=== PATIENT | female | born 1960 | race Caucasian/White ===

== ENCOUNTER → 2020-04-14 14:34 | Outpatient (CLI) | payer BC, SELFPAY ==
--- NOTE | 2020-04-14 14:41 | XR_ITS ---
PROCEDURE: XR ANKLE RT MIN 3V CLINICAL INDICATION: RT ANKLE PAIN COMPARISON: No exams were available for comparison FINDINGS: There is a nondisplaced longitudinal fracture through the distal aspect of the tibia medially. The fracture extends to the base the medial malleolar region. The ankle mortise does not appear widened. There are mild osteoarthritic changes of the ankle. There are mild degenerative changes in the midfoot. IMPRESSION: Nondisplaced longitudinal fracture at the base of the medial malleolus Dictated by: Denis Huizar MD 04/14/2020 15:03 Denis Huizar MD in [place] 04/14/2020 15:03
== END ==
PROVIDERS: PCP Family Medicine; Visit Provider Nurse Practitioner
DX: M25.571 Pain in right ankle and joints of right foot (principal); R60.9 Edema, unspecified
CPT/HCPCS: 73610

== ENCOUNTER → 2020-09-01 13:52 | Outpatient (CLI) | payer BC, SELFPAY ==
--- NOTE | 2020-09-01 14:00 | XR_ITS ---
PROCEDURE: XR LUMBAR SPINE MIN 4V CLINICAL INDICATION: LUMBAGO W/SCIATICA RT SIDE COMPARISON: No exams were available for comparison FINDINGS: Moderate scoliosis convex to the left. Moderate diffuse degenerative changes of the lumbar spine. Slight anterolisthesis of L4 on L5. SI joints are normal. Moderate bilateral facet spondylosis of L4-5 and L5-S1. No acute fracture. IMPRESSION: Moderate diffuse degenerative changes with slight anterolisthesis of L4 on L5 and moderate bilateral facet spondylosis of L4-5 and L5-S1. Some degenerative change of the lower thoracic spine noted. Dictated by: Barak Finn MD 09/01/2020 14:28 Barak Finn MD in [place] 09/01/2020 14:28
== END ==
PROVIDERS: PCP Nurse Practitioner Family; Visit Provider Nurse Practitioner Family
DX: M54.42 Lumbago with sciatica, left side (principal); M54.41 Lumbago with sciatica, right side
CPT/HCPCS: 72110

== ENCOUNTER → 2020-09-13 09:05 | Outpatient (CLI) | payer BC, SELFPAY ==
--- NOTE | 2020-09-13 09:18 | XR_ITS ---
PROCEDURE: XR DEXA AXIAL SKELETON CLINICAL HISTORY: SCREENING FOR OSTEOPOROSIS,H/O RT ANKLE FX COMPARISON: No exams were available for comparison FINDINGS: The right hip BMD is 0.620 with a T-score of -2.1. The left hip BMD is 0.663 with a T-score of -1.7. The lumbar spine BMD is 0.840 with a T-score of -1.9. IMPRESSION: This patient is considered osteopenic according to the World Health Organization criteria. Bone density is between 10 and 25 percent below young normal. Fracture risk is moderate. Treatment is advised. Based on these results a follow-up exam is recommended in 2 year. Dictated by: Denis Huizar MD 09/13/2020 19:28 Denis Huizar MD in [place] 09/14/2020 07:28
== END ==
PROVIDERS: PCP Nurse Practitioner Family; Visit Provider Nurse Practitioner Family
DX: Z13.820 Encounter for screening for osteoporosis (principal); Z87.81 Personal history of (healed) traumatic fracture
CPT/HCPCS: 77080

== ENCOUNTER 2020-11-05 15:59 | Emergency (ER) | payer BC, SELFPAY ==
[2020-11-05 16:50] VITALS: BP 148/79; PULSE 76; RESP 21; TEMP 37.7; O2SAT 98; BMI 42.5
[2020-11-05 17:17] VITALS: BP 148/79; PULSE 76; RESP 21; TEMP 37.7; O2SAT 98
--- NOTE | 2020-11-05 17:18 | HMH.EDUTC ---
[facility] [place]ression: Encounter for laboratory testing for COVID-19 virus Disposition: Home, Self-Care Condition on Discharge: Good Instructions: DI for COVID-19 (Suspected or Confirmed ), Coronavirus Disease 2019, Preventing the Spread of Coronavirus Discharge Instructions Additional Instructions: *Monitor Temp, Over the counter Motrin or Tylenol as directed/as needed Tylenol every 4 hours and Motrin every 6 hours (as long as your family doctor has told you that you can take it) for fever or pain. and straight to ER if unable to lower temp less than 101.0 after medication given *Warm fluids like tea with honey may help to soothe the throat and open up your sinuses *Sleep elevated *Humidifier/Vaporizer *Flonase 2 sprays in each nostril daily but be aware that it may take 2-3 days before you notice improvement Follow up IMMEDIATELY for new or worsening symptoms or no Noticeable improvement over the next 48-72 hours. 911 for difficulty breathing or swallowing You were tested for today for COVID19 your test result should be back in the next 24-48 hours, you may call to the [facility] to see if your test results are back in the next 48 hours [phone] [facility] hours are 9am-9pm You was given a handout with instructions for Self Quarantine and Self isolation for while you wait on test results and what to do if they are positive If you are positive the Health Dept will be contacting you also Make sure to take your Vitamins Vit. C Vit D and Zinc if you can take them Referrals: Akil Cabrera MD [Primary Care Provider] - As needed Forms: Work/School Release Time of Disposition: 17:21 Medical Decision Making - Charles Inquiry Pt receiving controlled substance: No Charles was queried for this patient: No Vital Signs: 11/05/20 16:50 11/05/20 17:17 Temperature 99.9 F H 99.9 F H Temperature Source Oral Pulse Rate 76 Pulse Rate [Right Brachial] 76 Respiratory Rate 21 21 Blood Pressure 148/79 H Blood Pressure [Right Arm] 148/79 H Blood Pressure Mean [Right Arm] 102 Blood Pressure Source [Right Arm] Automatic Cuff Blood Pressure Position [Right Arm] Sitting 02 Sat by Pulse Oximetry 98 Oxygen Delivery Method Room Air Orders (Tests/Meds): ORDERS Category Date Time Status Covid-19 Nasal PCR ([facility]) Routine Lab 11/05/20 16:51 [place] [facility] [place] - General Stated complaint: cough,congestion Time Seen by Provider: 11/05/20 17:18 Mode of Arrival: Ambulatory Source of Information: Patient Limitations: No Limitations Description of Symptoms (Recalled from Triage Doc. by RN): PATIENT C/O COUGH, FEVER, CONGESTION, AND FATIGUE X 2 DAYS. REQUESTING COVID TEST HEENT Symptoms (Recalled from RN notes): Yes Resp Symptoms (Recalled from RN notes): Yes Skin Symptoms (Recalled from RN notes): No MS Symptoms (Recalled from RN notes): No Functional Status (Recalled from RN notes): WNL - History of Present Illness Provider Complaint: Patient state that she has had cough, nasal congestion and feeling achy and tired for 2 days State that she took an at home COVID test and it showed positive so she wanted to get tested for COVID - Related Data Home Medications Medication Instructions Recorded Confirmed No Known Home Medications 04/02/19 04/02/19 Allergies Allergy/AdvReac Type Severity Reaction Status Date / Time No Known Allergies Allergy Verified 04/01/19 10:36 - Worker's Comp Is this a Worker's Comp case?: No [facility] History - Hepatitis A Screen Drug use history?: No High risk sexual behaviors?: No History of sexually transmitted infection?: No Currently employed?: No Childcare worker?: No Do you have indoor plumbing?: Yes Do you have electricity?: Yes Attestation statement:: This patient has been screened for Hepatitis A risk factors. I have reviewed the patient's past medical history: Yes Medical History: Denies:: Cancer, Diabetes Mellitus Type 1, Diabetes Mellitus Type 2, Internal
--- NOTE | 2020-11-06 11:54 | PC.NURSE ---
PT NOTIFIED OF POSITIVE COVID TEST RESULTS
== END 2020-11-05 17:31 | disposition home or self-care (01) ==
PROVIDERS: Emergency Provider Nurse Practitioner; PCP Family Medicine
DX: U07.1 COVID-19 (principal)
CPT/HCPCS: 99202; G0463; U0003

== ENCOUNTER 2022-02-04 15:18 | Emergency (ER) | payer BC, SELFPAY ==
--- NOTE | 2022-02-04 16:54 | EXP.UTC ---
Discharge Plan Disposition Patient Disposition: Home, Self-Care Condition: Good Prescriptions Prescriptions: New azithromycin [Zithromax] 250 mg tablet 250 mg PO UD DOSE PK Qty: 6 0RF Rx Instructions: Take two (2) tablets today, then one (1) tablet days #2 thru #5 benzonatate [benzonatate] 100 mg capsule 100 mg PO TIDP PRN (Reason: Cough) Qty: 30 0RF Paxlovid (EUA) 300 mg (150 mg x 2)-100 mg tablet See Rx Instructions .ROUTE .COMPLEX Qty: 30 0RF Rx Instructions: take TWO 150 mg tablets of nirmatrelvir with ONE 100 mg tablet of ritonavir twice daily for 5 days No Action benzonatate 100 MG capsule 100 mg PO TID PRN (Reason: Cough) Qty: 15 0RF Referrals Follow up/Referrals: Akil Cabrera MD [Primary Care Provider] - See instructions Activity Restrictions/Add. Instructions Additional Instructions/Restrictions: Drink plenty of fluids. Take tylenol or ibuprofen for pain or fever. Take the medications as directed. Follow up with your regular doctor. GO TO THE ER FOR ANY WORSENING SYMPTOMS Quarantine until you know the results of your covid-19 test. Notify your school or workplace of your results and follow their instructions regarding return to work/school. Clinical Impressions Clinical Impression: COVID-19, Acute viral syndrome Stand Alone Forms Stand Alone Forms: Work/School Release Instructions Patient Instructions: Coronavirus Disease 2019, Preventing the Spread of Coronavirus Discharge Instructions Discharge ED Provider: Barak Mckeon [facility] General Stated complaint: covid test, cough, congestion Time Seen by Provider: 02/04/22 16:54 History of Present Illness Provider Complaint: She states that for the past 2 days she has felt bad, had a dry cough, and body aches. She has been exposed to covid-19. She denies any shortness of breath. Related Data Previous Rx's Medication Instructions Recorded benzonatate 100 mg capsule 100 mg PO TID PRN Cough #15 caps 11/05/20 azithromycin 250 mg tablet 250 mg PO UD DOSE PK #6 tabs 02/04/22 (Zithromax) benzonatate 100 mg capsule 100 mg PO TIDP PRN Cough #30 caps 02/04/22 nirmatrelvir 300 mg (150 mg See Rx Instructions PO .COMPLEX 02/04/22 x2)-ritonavir 100 mg tablet,dose #30 tabs pack(EUA) (Paxlovid) Allergies Allergy/AdvReac Type Severity Reaction Status Date / Time No Known Allergies Allergy Verified 02/04/22 17:18 PFSH PFS Social History Smoking Status: Never smoker alcohol intake: never substance use type: other current occupational status: employed Travel in the last 8 weeks: Outside the [facility] household members: family housing: house current occupation: [email or web address] current occupational exposures/hazards: No caffeine: Yes ROS Obtained: Yes All systems reviewed & no additional complaints except as documented Constitutional Constitutional: Reports chills and Reports fever(s) Eyes Eyes: Denies eye discharge ENT Ears, Nose, Mouth, and Throat: Reports as per HPI Cardiovascular Cardiovascular: Denies chest pain Respiratory Respiratory: Denies chest congestion and Reports cough Gastrointestinal Gastrointestingal: Reports nausea; Denies abdominal pain, constipation, cramping, diarrhea or vomiting Musculoskeletal Musculoskeletal: Denies arthralgias Integumentary/Breasts Skin/Breast: Denies rash Neurologic Neurologic: Denies paresthesias Physical Exam General General appearance: alert and in no apparent distress Head Head exam: atraumatic, normocephalic and normal inspection Eye Eye exam: Present normal appearance, PERRL and EOMI ENT ENT exam: Present normal exam, normal oropharynx, mucous membranes moist, TM's normal bilaterally and normal external ear exam Neck Neck exam: Present normal inspection, full ROM and trachea midline; Absent meningismus or lymphadenopathy Chest Chest inspection: Pres
[2022-02-04 17:10] VITALS: BP 184/93; PULSE 86; RESP 18; TEMP 36.5; O2SAT 99; BMI 43.3
[2022-02-04 17:52] VITALS: BP 184/93; PULSE 86; RESP 18; TEMP 36.5
== END 2022-02-04 17:57 | disposition home or self-care (01) ==
PROVIDERS: Emergency Provider Nurse Practitioner Family; PCP Family Medicine
DX: U07.1 COVID-19 (principal); R50.9 Fever, unspecified; R05.9 Cough, unspecified; R09.81 Nasal congestion; M79.10 Myalgia, unspecified site
CPT/HCPCS: 99213; C9803; G0463; U0003; U0005